=== PATIENT | female | born 1990 | race Caucasian/White ===

== ENCOUNTER 2017-05-07 18:02 | Emergency (ER) | payer OTHER ==
--- NOTE | ~2017-05-07 | ER ---
PATIENT'S NAME: DENIA GLEASON [facility] AGE: 26 Y [address] ROOM: [place], [place] [address] LOCATION: [facility] ADMIT DATE: 05/07/2017 ER/Outpatient Report DISCHARGE DATE: 05/07/2017 FAMILY PHYSICIAN: Physician, Unknown ATTENDING PHYSICIAN: Rosales Zimmerman Admission date and time documented on the medical record. I saw the patient at 1810 hours. CHIEF COMPLAINT: Bucked off a horse, loss of consciousness, head and neck pain. HISTORY OF PRESENT ILLNESS: This patient is a 26-year-old female, who had an accident around 0930 hours this morning. The patient was riding a horse, apparently got bucked off and the horse rolled on her. The patient did strike her head. She did lose consciousness. She does not recall the incident. The patient was taken to [facility] in [place], [place], evaluated there. The patient had a CT scan of the head and CT scan of the cervical spine. She also had plain films of the right lower leg. CT scan of the head showed no intracranial bleed, midline shift, mass effect, or skull fracture. CT scan of the cervical spine showed no acute fracture or subluxation. She did have disk extrusion at C5-C6 with moderate canal stenosis. The patient was subsequently transferred by ground ambulance from [place] to [facility] here in [place], [place]. Dr. Galeano, neurosurgeon, did accept the patient. On arrival, the patient was awake and responsive. The patient does have ecchymosis around the left eye. She is in rigid cervical collar. She has headache and neck pain. No thoracic or lumbar spine pain. No chest pain, shortness of breath. No abdominal pain. No nausea, vomiting, or diarrhea. No urinary symptoms. No incontinence. She has some abrasions to the right knee and lower leg. There was no fracture on plain films done in [place] of the right tib-fib. She moves all 4 extremities. No peripheral edema, cyanosis, or deformity. She has no numbness, tingling, or loss of function. The patient has no cranial nerve changes. No history of neuro changes, psych issues, endocrine problems. No recent colds, coughs, flus, fever, chills, or sweats. No other injuries. HOME MEDICATIONS: See attached medication list. ALLERGIES: PENICILLIN. SOCIAL HISTORY: Nonsmoker, nondrinker. PATIENT'S NAME: DENIA GLEASON [facility] AGE: 26 Y [address] ROOM: [place], [place] [address] LOCATION: [facility] ADMIT DATE: 05/07/2017 ER/Outpatient Report DISCHARGE DATE: 05/07/2017 FAMILY PHYSICIAN: Physician, Unknown ATTENDING PHYSICIAN: Rosales Zimmerman SIGNIFICANT PAST MEDICAL HISTORY: Gastroesophageal reflux. OPERATIONS: None. REVIEW OF SYSTEMS: All systems reviewed by me are negative with the exception of those discussed in the history of present illness. PHYSICAL EXAMINATION: VITAL SIGNS: Pulse 99 and regular, respirations 20, blood pressure 112/73, O2 saturation on room air is 100%. HEAD: Normocephalic. No abrasion, contusion, lacerations of the scalp. The patient does have some ecchymosis with some mild if any of left periorbital area. EYES: Extraocular muscles intact. PERRL. Sclerae and conjunctivae clear, nonicteric. No hyphema or subconjunctival hemorrhages. EARS: Clear TMs bilaterally. NOSE: Clear. THROAT: Clear. Mucous membranes moist. Teeth and jaw intact. NECK: The patient has rigid cervical collar. SPINE: Negative. LUNGS: Clear. Good air flow. No rales, rhonchi, or wheezes. HEART: Regular. Pulses are palpable. No chest wall or ribcage pain to palpation. No deformity. ABDOMEN: Soft, nondistended, nontender. Good bowel tones. No organomegaly or abnormal mass palpable. No CVA tenderness. PELVIS: Stable, nontender. EXTREMITIES: Moves all 4 extremities. No peripheral edema, cyanosis, or deformity. The patient has some abrasions to the right knee and right proximal half of the lower leg. NEURO: Cranial nerves intact. No lateralized sign. The patient is awake, cooperative. Motor and sensory intact. The patient is amnesic in regard to the incident. SKIN: Clear other than the abrasions to the right proximal half of the lower leg and ecchymosis of the left periorbital area. LABORATORY DATA AND X-RAYS: I did review the laboratory studies from [place], also reviewed the radiology reports on the CT scan of the head, cervical spine, and the plain films of the right tib-fib. LABORATORY DATA AND X-RAYS: I did discuss the patient with Dr. Galeano. Dr. Galeano wanted an MRI scan of the PATIENT'S NAME: DENIA GLEASON [facility] AGE: 26 Y [address] ROOM: [place], [place] [address] LOCATION: [facility] ADMIT DATE: 05/07/2017 ER/Outpatient Report DISCHARGE DATE: 05/07/2017 FAMILY PHYSICIAN: Physician, Unknown ATTENDING PHYSICIAN: Rosales Zimmerman cervical spine without contrast. This was performed. IMPRESSION: Horse accident. The patient was bucked off a horse. The horse apparently rolled on her. The patient does have some left periorbital ecchymosis, abrasions to the right lower leg. She has disk extrusion at C5-C6 on her CT scan of the cervical spine. She had no CT scan changes of the brain. PLAN: Dr. Galeano is coming in to evaluate the patient and evaluate the MRI scan of the cervical spine. We will proceed on his recommendations for further treatment and evaluation. MD MARIO CHAVARRIA/modl /[id number] d: 05/08/17 0140 t: 05/08/17 1708, OUTPATIENT REPORT
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
== END 2017-05-07 21:22 | disposition disaster alternative care site (69) ==
LOC: GACC 18:02
DX: S13.161A Dislocation of C5/C6 cervical vertebrae, initial encounter (principal); S05.12XA Contusion of eyeball and orbital tissues, left eye, initial encounter; S80.211A Abrasion, right knee, initial encounter; K21.9 Gastro-esophageal reflux disease without esophagitis; Z88.0 Allergy status to penicillin; Z88.1 Allergy status to other antibiotic agents; V80.010A Animal-rider injured by fall from or being thrown from horse in noncollision accident, initial encounter; Y93.52 Activity, horseback riding